=== PATIENT | male | born 2000 | race Caucasian/White ===

== ENCOUNTER 2018-03-02 19:33 | Emergency (ER) | payer OTHER ==
[~2018-03-02] VITALS: Ht 193 cm; Wt 170.1 kg
[2018-03-02] MEDS ORDERED: HYDR-3164 PO (20:56)
[2018-03-02] MEDS ORDERED: IBUP-1060 PO (20:56)
--- NOTE | 2018-03-02 20:56 | PHYS DOC ---
Adult General Chief Complaint Chief Complaint: MECHANICAL FALL HPI HPI Patient is a 17 year old right handed male who brought in by EMS because of a fall and injury to left upper extremity. 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 Patient rated his pain 8/10 and had 200 g of fentanyl nasally with improvement of his pain. Patient denies focal neuro deficit. Review of Systems Review of Systems Constitutional: Denies fever or chills [] Eyes: Denies change in visual acuity, redness, or eye pain [] HENT: Denies nasal congestion or sore throat [] Respiratory: Denies cough or shortness of breath [] Cardiovascular: No additional information not addressed in HPI [] GI: Denies abdominal pain, nausea, vomiting, bloody stools or diarrhea [] : Denies dysuria or hematuria [] Musculoskeletal: Denies back pain, reports extremity and joint pain [] Integument: Denies rash or skin lesions [] Neurologic: Denies headache, focal weakness or sensory changes [] Endocrine: Denies polyuria or polydipsia [] All other systems were reviewed and found to be within normal limits, except as documented in this note. Current Medications Current Medications Current Medications Medications (Trade) Dose Ordered Sig/Sravanthi Start Time Stop Time Status Last Admin Dose Admin Acetaminophen/ Hydrocodone Bitart (Lortab 5/325) 1 tab 1X ONCE 03/02/18 21:30 03/02/18 21:30 DC 03/02/18 21:09 1 TAB Morphine Sulfate (Morphine Sulfate) 4 mg 1X ONCE 03/02/18 21:00 03/02/18 21:01 DC 03/02/18 20:26 4 MG Ondansetron HCl (Zofran) 4 mg 1X ONCE 03/02/18 21:15 03/02/18 21:16 DC 03/02/18 21:08 4 MG Allergies Allergies Allergies Coded Allergies Type Severity Reaction Last Updated Verified No Known Drug Allergies 03/02/18 No Physical Exam Physical Exam Constitutional: Well developed, well nourished, mild distress, non-toxic appearance. [] HENT: Normocephalic, atraumatic. Eyes: PERRLA, EOMI, conjunctiva normal, no discharge. [] Neck: Normal range of motion, no tenderness, supple, no stridor. [] Cardiovascular:Heart rate regular rhythm, no murmur [] Lungs & Thorax: Bilateral breath sounds clear to auscultation [] Abdomen: Bowel sounds normal, soft, no tenderness, no masses, no pulsatile masses. [] Skin: Warm, dry, no erythema, no rash. [] Back: No tenderness, no CVA tenderness. [] Extremities: Left upper extremity with tenderness and mild deformity in mid arm limited range of motion without neurovascular deficit Neurologic: Alert and oriented X 3, normal motor function, normal sensory function, no focal deficits noted. [] Psychologic: Affect normal, judgement normal, mood normal. [] Current Patient Data Vital Signs Vital Signs Date Time Temp Pulse Resp B/P (MAP) Pulse Ox O2 Delivery O2 Flow Rate FiO2 03/02/18 21:09 88 16 163/81 (108) 99 Room Air 03/02/18 19:33 98.0 98.0 Lab Values Laboratory Tests Test 03/02/18 20:15 White Blood Count 15.7 x10^3/uL (4.0-11.0) H Red Blood Count 5.15 x10^6/uL (4.30-5.70) Hemoglobin 13.4 g/dL (13.0-17.5) Hematocrit 40.9 % (39.0-53.0) Mean Corpuscular Volume 79 fL (79-100) Mean Corpuscular Hemoglobin 26 pg (25-35) Mean Corpuscular Hemoglobin Concent 33 g/dL (31-37) Red Cell Distribution Width 14.0 % (11.5-14.5) Platelet Count 389 x10^3/uL (140-400) Sodium Level 138 mmol/L (136-145) Potassium Level 4.0 mmol/L (3.5-5.1) Chloride Level 102 mmol/L (98-107) Carbon Dioxide Level 24 mmol/L (21-32) Anion Gap 12 (6-14) Blood Urea Nitrogen 14 mg/dL (8-26) Creatinine 0.9 mg/dL (0.7-1.3) Estimated GFR (Cockcroft-Gault) 108.7 BUN/Creatinine Ratio 16 (6-20) Glucose Level 117 mg/dL (70-99) H Calcium Level 8.9 mg/dL (8.5-10.1) Total Bilirubin 0.1 mg/dL (0.2-1.0) L Aspartate Amino Transferase (AST) 22 U/L (15-37) Alanine Aminotransferase (ALT) 43 U/L (16-63) Alkaline Phosphatase 103 U/L (46-116) Total Protein 8.1 g/dL (6.4-8.2) Albumin 3.8 g/dL (3.4-5.0) Albumin/Globulin Ratio 0.9 (1.0-1.7) L Laboratory Tests 03/02/18 20:15 Laboratory Tests 03/02/18 20:15 EKG EKG [] Radiology/Procedures Radiology/Procedures [facility] [address] [place] [address] IMAGING REPORT Signed PATIENT: MEHNAZ BARNES ACCOUNT: [id number] : 2000 LOCATION: ER AGE: 17 SEX: M EXAM STATUS: DEP ER ORD. PHYSICIAN: LIZZIE THORNTON MD REASON: fall PROCEDURE: SHOULDER LEFT 1V Examination: Frontal view of the left shoulder and 3 views of the left elbow HISTORY: History of fall, trauma COMPARISON: None. Findings: There is lateral and posterior displaced transverse fracture of the midshaft of the humerus. The relation of the elbow joint is limited due to positioning. IMPRESSION: Lateral posterior displaced fracture of the midshaft left humerus. Electronically signed by: Real Eller MD (03/03/2018 1:27 AM) [id number] DICTATED and SIGNED BY: REAL ELLER MD DATE: 03/03/18 0125 Course & Med Decision Making Course & Med Decision Making Pertinent Labs and Imaging studies reviewed. (See chart for details) Evaluation of patient in ER showed 17-year-old male patient with a fall and injury to left upper extremity. Patient had unremarkable neuro exam with tenderness and deformity of left arm. X-ray showed displaced transverse fracture of humeral shaft. Shoulder immobilizer was applied. On-call orthopedic physician Dr. Monroy was consulted at 2033 and recommended to follow-up as outpatient. Dragon Disclaimer Dragon Disclaimer This electronic medical record was generated, in whole or in part, using a voice recognition dictation system. Departure Departure Impression: Primary Impression: Closed fracture of shaft of left humerus Additional Impressions: Fall down stairs Morbid obesity Disposition: HOME, SELF-CARE (At 2050) Condition: IMPROVED Referrals: DOMINGO MONROY II, MD Patient Instructions: Humerus Fracture, Treated with Immobilization Additional Instructions: Follow-up with youth development professional orthopedic physician tomorrow Follow-up with your primary care physician in 3-5 days Return to ER if not getting better Scripts Hydrocodone/Apap 5-325 (NORCO 5-325 TABLET) 1 Each Tablet 1 TAB PO PRN Q6HRS PRN for PAIN, #20 TAB 0 Refills Prov: LIZZIE THORNTON MD 03/02/18 Ibuprofen (IBUPROFEN) 800 Mg Tablet 800 MG PO PRN TID PRN for PAIN, #30 TAB take with food or milk to avoid upsetting stomach Prov: LIZZIE THORNTON MD 03/02/18 Problem Qualifiers LIZZIE THORNTON MD Mar 02, 2018 20:56
[2018-03-02 20:57] LABS: CALCIUM 8.9 mg/dL (8.5-10.1); CREATININE 0.9 mg/dL (0.7-1.3); GFR 108.7
[2018-03-02] MEDS ORDERED: ONDANSETRON PF 4 MG/2 ML VIAL. ONE (20:59)
[2018-03-02] MEDS ORDERED: MORPHINE SULFATE 4 MG/ML VIAL. IV ONE (21:00)
[2018-03-02 21:03] LABS: ALBUMIN 3.8 g/dL (3.4-5.0); ALBUMIN/GLOBULIN RATIO 0.9 (1.0-1.7); TOTAL BILIRUBIN 0.1 mg/dL (0.2-1.0); TOTAL PROTEIN 8.1 g/dL (6.4-8.2)
[2018-03-02 21:09] VITALS: BP 163/81
[2018-03-02 21:09] LABS: HEMATOCRIT 40.9 % (39.0-53.0); HEMOGLOBIN 13.4 g/dL (13.0-17.5); RED BLOOD COUNT 5.15 x10^6/uL (4.30-5.70); WHITE BLOOD COUNT 15.7 x10^3/uL (4.0-11.0)
[2018-03-02] MEDS ORDERED: ONDANSETRON PF 4 MG/2 ML VIAL. IV ONE (21:15)
[2018-03-02] MEDS ORDERED: HYDROcodone/APAP 5/325MG 1 TAB TABLET PO ONE (21:30)
--- NOTE | 2018-03-03 01:31 | RAD ---
Examination: Frontal view of the left shoulder and 3 views of the left elbow HISTORY: History of fall, trauma COMPARISON: None. Findings: There is lateral and posterior displaced transverse fracture of the midshaft of the humerus. The relation of the elbow joint is limited due to positioning. IMPRESSION: Lateral posterior displaced fracture of the midshaft left humerus. Electronically signed by: Real Eller MD (03/03/2018 1:27 AM) [id number]
== END 2018-03-02 21:13 | disposition home or self-care (01) ==
LOC: ER 19:33
DX: S42.322A Displaced transverse fracture of shaft of humerus, left arm, initial encounter for closed fracture (principal); E66.01 Morbid (severe) obesity due to excess calories; Z68.42 Body mass index [BMI] 45.0-49.9, adult; W10.8XXA Fall (on) (from) other stairs and steps, initial encounter; Y93.89 Activity, other specified; Y92.89 Other specified places as the place of occurrence of the external cause; Y99.8 Other external cause status
CPT/HCPCS: 29240; 36415; 73020; 73080; 80053; 85027; 96374; 96375; 99285; J2270; J2405